=== PATIENT | female | born 1985 | race African-American/Black ===

== ENCOUNTER 2016-07-16 10:35 | Inpatient (IN) | payer OTHER ==
[2016-07-16 12:00] VITALS: BP 110/72; PULSE 114; TEMP 98.6; BMI 30.5
--- NOTE | 2016-07-16 14:40 | HP ---
Past Medical History - Primary Care Physician PCP:: Ravi Tran - Admission Chief Complaint: 31 yo P0 with twin gestation at [id number] and known h/o cervical incompetence presents with c/o vaginal spotting, pelvic pressure, and leaking fluids. History of Present Illness: EDC 11/22/16 dated by LMP and c/w sono (04/01/2017) at 6w3d. Twin gestation diamniotic/dichorionic. Hx PCOS resulted from Clomid ovarian stimulation -- Pt was seen in the office yesterday with c/o pelvic pressure and found to have cervix dilated to 3cm. Pt was otherwise asymptomatic and she was sent home with bedrest and Vaginal Progesterone suppositories. History Source: Patient, Significant Other (BF), Medical Record Limitations to Obtaining History: No Limitations - Past Medical History WORKDAY MANAGER: No: Alzheimer's, CVA, Dementia, Migraine, Multiple Sclerosis, Peripheral Neuropathy, Parkinson's, Seizure, Syncope, TIA, Vertigo, Other Cardiovascular: No: AFIB, Aneurysm, Aortic Insufficiency, Aortic Stenosis, CAD, CHF, Deep Vein Thrombosis, HTN, Hyperlipdemia, DE, Mitral Insufficiency, Mitral Stenosis, Murmur, Pulmonary Hypertension, Other Pulmonary: No: Asthma, Bronchitis, Cancer, COPD, O2 Dependent, Pneumonia, Previously Intubated, Pulmonary Embolus, Pulmonary Fibrosis, Sleep Apnea, Other Gastrointestinal: No: Ascites, Cancer, Constipation, Crohn's Disease, Diverticulitis, Diverticulosis, Esophageal Varices, Gastritis, GERD, GI Bleed, Hemorrhoids, Hiatal Hernia, Inflamatory Bowel Disease, Irritable Bowel Disease, Pancreatitis, Peptic Ulcer Disease, Ulcerative Colitis, Other Hepatobiliary: No: Cirrhosis, Cholelithiasis, Cholecystitis, Choledocholithiasis , Hepatitis A, Hepatitis B, Hepatitis C, Other Reproductive: Yes: Polycystic Ovary Syndrome ...: 1 ...Para: 0 ...Term: 0 ...: 0 ...Spon : 0 ...Induced : 0 ...Multiple Gestation: 0 ... Weeks Gestation by Dates: 21.4 ...EDC by Sono: 11/22/16 Heme/Onc: Yes: Anemia Infectious Disease: No: AIDS, C-Diff, Herpes Zoster, HIV, MRSA, STD's, Tuberculosis, VREF, Other Psych: No: Addictions, Anxiety, Bipolar, Depression, Panic, Psychosis, Schizophrenia, Other Musculoskeletal: No: Bursitis, Chronic low back pain, Hemiparesis, Hemiplegia, Osteoarthritis, Paraplegia, Other Rheumatology: No: Fibromyalgia, Gout, Lupus, Rheumatoid Arthritis, Sarcoidosis, Vasculitis, Other ENT: No: Allergic Rhinitis, Sinusitis, Other Endocrine: No: [place]'s Disease, [place]'s Disease, Diabetes Insipidus, Diabetes Mellitus, Hyperparathyroidism, Hyperthyroidism, Hypothyroidism, Osteopenia, SIADH, Other Dermatology: No: Basal Cell, Cellulitis, Eczema, Melanoma, Psoriasis, Squamous Cell, Other - Past Surgical History Past Surgical History: Yes: None Hx Myomectomy: No Hx Transabdominal Cerclage: No - Smoking History Smoking history: Never smoked Have you smoked in the past 12 months: No Aproximately how many cigarettes per day: 0 - Alcohol/Substance Use Hx Alcohol Use: No History of Substance Use: reports: None - Social History Usual Living Arrangement: Yes: With Significant Other ADL: Independent History of Recent Travel: No Home Medications - Allergies Allergies/Adverse Reactions: Allergies Allergy/AdvReac Type Severity Reaction Status Date / Time shrimp Allergy Verified 07/16/16 14:44 - Home Medications Home Medications: Ambulatory Orders Vit No.130/Iron/FA [ Vitamins] 1 each PO DAILY 07/16/16 Progesterone,Micronized [Progesterone] mg VG DAILY 07/16/16 Family Disease History - Family Disease History Family Disease History: Other: Mother (Brain aneurism tx'd) Review of Systems - Review of Systems Constitutional: reports: No Symptoms Eyes: reports: No Symptoms HENT: reports: No Symptoms Neck: reports: No Symptoms Cardiovascular: reports: No Symptoms Respiratory: reports: No Symptoms Gastrointestinal: reports: No Symptoms Genitourinary: reports: Vaginal Bleeding (spotting), Other (leaking fluids) Breasts: reports: No Symptoms Reported Musculoskeletal: reports: No Symptoms Integumentary: reports: No Symptoms Neurological: reports: No Symptoms Endocrine: reports: No Symptoms Hematology/Lymphatic: reports: No Symptoms Psychiatric: reports: No Symptoms Pain Intensity: 0 Physical Exam - Maternity Vital Signs: Vital Signs Temperature 98.6 F 07/16/16 11:00 Pulse Rate 114 H 07/16/16 11:00 Respiratory Rate 20 07/16/16 11:00 Blood Pressure 110/72 07/16/16 11:00 O2 Sat by Pulse Oximetry (%) Constitutional: Yes: Well Nourished, No Distress, Anxious Eyes: Yes: WNL, Conjunctiva Clear HENT: Yes: WNL, Atraumatic, Normocephalic Neck: Yes: WNL, Supple, Trachea Midline Cardiovascular: Yes: WNL, Regular Rate and Rhythm Lungs: Clear to auscultation, Normal air movement - Abdominal Exam/OB Fundal Height: 22 Number of Fetuses: Multiple Contractions: No - Vaginal Exam/OB Vaginal Bleediing: No Speculum Exam: Yes Dilatation (cm): 3 Effacement (%): ?? Amniotic Membrane Status: Leaking (Amniotic membranes prolapsing through the os) Nitrazine Test: Positive Amniotic Fluid: Yes: Clear - Physical Exam Musculoskeletal: Yes: WNL Extremities: Yes: WNL Edema: No Integumentary: Yes: WNL Deep Tendon Reflex Grade: Normal +2 ...Motor Strength: WNL Psychiatric: Yes: WNL, Alert, Oriented Hemorrhage Risk Assessment - Risk Factors Medium Risk Factors: Yes: Multiple gestation High Risk Factors: Yes: None Risk Score: 1 Risk Level: Medium Risk Problem List - Problems (1) Twin dichorionic diamniotic placenta Code(s): O30.049 - TWIN , DICHORIONIC/DIAMNIOTIC, UNSP TRIMESTER (2) Twin gestation in second trimester Assessment/Plan: Well dated. Code(s): O30.002 - TWIN PREG, UNSP NUM PLCNTA & AMNIO SACS, SECOND TRIMESTER Qualifiers: Multiple gestation type: dichorionic and diamniotic Qualified Code(s ): O30.042 - Twin , dichorionic/diamniotic, second trimester (3) premature rupture of membranes (PPROM) with onset of labor after 24 hours of rupture in second trimester, antepartum Assessment/Plan: Patient with previable . Well dated. Plan to admit to L&D. Consult MFM. Explained that this is a pre-viable . Discussed that pt is at High risk in short term for: Infection, sepsis delivery and loss Bleeding, possibly heavy Retained POC If is managed expectantly, technician terminal and repeater risk for: all of the above and Severe prematurity with complications and acute as well as chronic morbidity, mortality Severe maternal and/or infection Possible maternal and/or . Expectant vs active management of was discussed but plan to await [facility] call back (Dr. Garcia or Dr. Morales) and will be addressed separately, once the plan is determined. Code(s): O42.112 - PRETRM RATNA ROM, ONSET LABOR > 24 HOURS FOL RUPT, SECOND TRI Assessment/Plan Addendum: While awaiting a call-back from [facility], and admitting the patient, the patient decided to sign out AMA. She left the unit and drove to the [facility]. I called the patient and confirmed that she was being admitted to L&D at the [facility]. The patient states that the information I provided gave her "very little hope" and she wants a second opinion. I spoke to the charge nurse and gave her the info with my cellphone number.
== END 2016-07-16 11:40 | disposition left against medical advice (07) | DRG 778 ==
LOC: JDEL 10:35 → JLDR 11:00
PROVIDERS: ADMIT Obstetrics & Gynecology; ATTEND Obstetrics & Gynecology
DX: O60.02 Preterm labor without delivery, second trimester (principal); Z3A.21 21 weeks gestation of pregnancy; O30.002 Twin pregnancy, unspecified number of placenta and unspecified number of amniotic sacs, second trimester